=== PATIENT | female | born 1975 | race Caucasian/White ===

== ENCOUNTER 2023-09-16 11:23 | Emergency (ER) | payer OTHER, SELFPAY ==
[2023-09-16 11:56] VITALS: BP 153/85; PULSE 86; RESP 16; TEMP 36.3; O2SAT 100
--- NOTE | 2023-09-16 12:38 | ED.GENADULT ---
HPI - General Adult General Chief complaint: Skin/Abscess/Foreign Body Stated complaint: Rash Source: patient Mode of arrival: ambulatory Limitations: no limitations History of Present Illness HPI narrative: Patient presents for evaluation of a pruritic rash to the chest, anterior aspect of her neck and bilateral axillary regions since last night. No new lotions, soaps, detergents, topical products. No one else with whom she has been in contact has had similar symptoms to her knowledge. she reports a tingling sensation in her lips and a burning sensation to her tongue. Denies any difficulty breathing or swallowing. She has not tried any therapies to assist with her symptoms. She had similar symptoms a few months ago after she used a specific deodorant.. She was given prednisone x 7 days at that time for carpal tunnel. her rash improved, however she had recurrence thereafter. No history of autoimmune disease. Related Data Allergies Allergy/AdvReac Type Severity Reaction Status Date / Time No Known Allergies Allergy Verified 09/16/23 11:54 Review of Systems Review of Systems: CONSTITUTIONAL: Denies fever, chills, or sweats. EYES: Denies visual changes, redness, or discharge. ENT: Denies rhinorrhea, congestion, sore throat, or otalgia. CARDIOVASCULAR: Denies chest pain, palpitations, or edema. RESPIRATORY: Denies cough or dyspnea. GASTROINTESTINAL: Denies abdominal pain, nausea, vomiting, or diarrhea. GENITOURINARY: Denies dysuria or hematuria. SKIN: Reports pruritic rash to the chest, neck, bilateral axillary regions. MUSCULOSKELETAL: Denies back pain, joint pain, or myalgia. NEUROLOGIC: Denies headache, numbness, dizziness, or weakness. PSYCHIATRIC: Denies anxiety or depression. FORMERLY [facility] Past Medical History Medical History Carpal tunnel syndrome Surgical History Surgical History No pertinent past surgical history Family History Family History Mother Unknown family medical history Social History Social History Smoking status: Never smoker Alcohol intake: current Living arrangements: with family Gender identity (if verbalized by the patient): Female Exam Narrative: GENERAL: Well-appearing, well-nourished, and in no acute distress. HEAD: Normocephalic, atraumatic. EYES: PERRLA and EOMI. ENT: Nares clear, no rhinorrhea or epistaxis. Mucous membranes moist. Oropharynx without tonsillar hypertrophy exudate or other lesions. Bilateral TMs pearly mojica nonbulging NECK: Supple. No adenopathy or masses. No carotid bruits or JVD CHEST: Clear to auscultation. No respiratory distress. No wheezes rales or rhonchi HEART: Regular rate and rhythm. No murmur heard. Normal peripheral pulses. ABDOMEN: Soft, nontender, nondistended, normal active bowel sounds. EXTREMITIES: Normal range of motion. No edema. SKIN: there are hives noted to the anterior aspect of the chest, anterior aspect of the neck, and irregular distribution of an erythematous rash to bilateral axillary regions NEURO: No focal deficits. Alert and oriented x3. PSYCH: Normal mood and affect. Course Course Emergency Course: this is a 48-year-old female who presented for evaluation of a pruritic rash to neck, chest, bilateral axillary regions. she had similar symptoms in the past and was treated with prednisone for an unrelated condition for 7 days. Symptoms improved but she had recurrence thereafter. Will extend duration of therapy today. She was given Solu-Medrol while here. Increase hydration. Follow-up with primary care provider to determine whether referral to infusion therapy nurse as needed. Go to the emergency department for difficulty breathing or swallowing. Patient in agreement with plan of care
[2023-09-16] MEDS: methylPREDNISolone SOD SUCC 125 MG VIAL IM (12:41)
== END 2023-09-16 12:45 | disposition home or self-care (01) ==
PROVIDERS: Emergency Provider Nurse Practitioner; PCP Physician Assistant
DX: T78.40XA Allergy, unspecified, initial encounter (principal); R21 Rash and other nonspecific skin eruption
CPT/HCPCS: 96372; 99213; G0463; J2919